=== PATIENT | female | born 1995 | race Caucasian/White ===

== ENCOUNTER 2017-10-03 12:42 | Emergency (ER) | payer OTHER, SELFPAY | END 2017-10-03 13:00 | disposition home or self-care (01) | LOC: BURERS 12:42 | DX: T78.40XA Allergy, unspecified, initial encounter (principal); F17.210 Nicotine dependence, cigarettes, uncomplicated; F90.9 Attention-deficit hyperactivity disorder, unspecified type | CPT/HCPCS: 99283 ==

== ENCOUNTER 2019-11-06 00:49 | Emergency (ER) | payer OTHER, SELFPAY ==
[2019-11-06 01:12] LABS: Bilirubin Negative (Negative); Blood, Urine Negative (Negative); Clarity Slightly Cloudy (Clear); Glucose, Urine (Dipstick) Negative (Negative); Ketone, Urine Negative (Negative); Leukocyte Negative (Negative); Nitrite Positive (Negative); Protein, Urine (Dipstick) Negative (Neg-Trace); pH, Urine 5.5 (5.0-9.0)
[2019-11-06] MEDS ORDERED: Dicyclomine 20 MG TAB ONE (01:14)
[2019-11-06 01:15] LABS: Pregnancy Test - Urine (BHCG) Negative (Negative); Pregu Control Background? CLEAR/WHITE (CLR/WHITE); Pregu Control Bar Appear? YES (CONTROL BAR); Specific Gravity 1.026 (1.002-1.036); Specific Gravity, Urine 1.026 (1.002-1.036)
[2019-11-06 01:21] LABS: Bacteria/HPF 3+ HPF (None Seen); RBC/HPF None Seen HPF (0-3); Squamous Epithelial 0-3 HPF (0-3); WBC/HPF 0-3 HPF (0-3)
[2019-11-07 20:59] LABS: Chlam.trachomatis by PCR,Urine Not Detected (NotDetected)
== END 2019-11-06 01:50 | disposition home or self-care (01) ==
LOC: BURERS 00:49
DX: N91.2 Amenorrhea, unspecified (principal); F41.9 Anxiety disorder, unspecified; F90.9 Attention-deficit hyperactivity disorder, unspecified type; F32.9 Major depressive disorder, single episode, unspecified; F17.210 Nicotine dependence, cigarettes, uncomplicated
CPT/HCPCS: 81003; 81015; 81025; 87077; 87086; 87186; 87491; 87591; 99284

== ENCOUNTER 2020-09-12 16:01 | Emergency (ER) | payer OTHER, SELFPAY ==
[2020-09-12 16:41] LABS: Bilirubin Negative (Negative); Blood, Urine Negative (Negative); Clarity Clear (Clear); Glucose, Urine (Dipstick) Negative (Negative); Ketone, Urine Negative (Negative); Leukocyte Negative (Negative); Nitrite Negative (Negative); Protein, Urine (Dipstick) Negative (Neg-Trace); Specific Gravity, Urine 1.025 (1.005-1.030); Urobilinogen 0.2 mg/dL (Less than 2); pH, Urine 7.5 (5.0-9.0)
[2020-09-12] MEDS ORDERED: Ondansetron ODT 4 MG TAB ONE (17:14)
[2020-09-12 17:30] LABS: Pregnancy Test - Urine (BHCG) POSITIVE (Negative)
[2020-09-12 17:31] LABS: Pregu Control Background? CLEAR/WHITE (CLR/WHITE); Pregu Control Bar Appear? YES (CONTROL BAR); Specific Gravity 1.025 (1.002-1.036)
== END 2020-09-12 17:45 | disposition short-term general hospital (02) ==
LOC: BURERS 16:01
DX: O21.9 Vomiting of pregnancy, unspecified (principal); O99.891 Other specified diseases and conditions complicating pregnancy; R10.32 Left lower quadrant pain; O99.331 Smoking (tobacco) complicating pregnancy, first trimester; F17.210 Nicotine dependence, cigarettes, uncomplicated; Z3A.12 12 weeks gestation of pregnancy
CPT/HCPCS: 81003; 81025; 99284; Q0162

== ENCOUNTER 2021-03-18 21:50 | Emergency (ER) | payer OTHER ==
[2021-03-18 22:23] LABS: Bilirubin Negative (Negative); Blood, Urine Negative (Negative); Clarity Clear (Clear); Glucose, Urine (Dipstick) Negative (Negative); Ketone, Urine Trace mg/dL (Negative); Leukocyte Trace (Negative); Nitrite Negative (Negative); Protein, Urine (Dipstick) Negative (Neg-Trace)
[2021-03-18 22:30] LABS: Specific Gravity, Urine 1.024 (1.002-1.036)
[2021-03-18 22:36] LABS: Amphetamine Detected (NotDetected); Barbiturates Screen Not Detected (NotDetected); Benzodiazepine Screen Not Detected (NotDetected); Cocaine Metabolite Screen Not Detected (NotDetected); Medtox Control Line Valid? VALID (VALID); Methadone Not Detected (NotDetected); Methamphetamine Detected (NotDetected); Opiate Screen Not Detected (NotDetected); Oxycodone Screen Not Detected (NotDetected); Phencyclidine (PCP) Not Detected (NotDetected); THC/Cannabinoid Screen Detected (NotDetected); Tricyclic Screen Not Detected (NotDetected)
[2021-03-18 22:49] LABS: RBC/HPF 0-3 HPF (0-3); Squamous Epithelial 21-50 HPF (0-3); WBC/HPF 0-3 HPF (0-3)
[2021-03-18 22:50] LABS: Bacteria/HPF 2+ HPF (None Seen)
== END 2021-03-18 22:20 | disposition short-term general hospital (02) ==
LOC: BURERS 21:50
DX: O47.00 False labor before 37 completed weeks of gestation, unspecified trimester (principal); O99.330 Smoking (tobacco) complicating pregnancy, unspecified trimester; F17.210 Nicotine dependence, cigarettes, uncomplicated; Z3A.00 Weeks of gestation of pregnancy not specified
CPT/HCPCS: 80306; 81003; 81015; 87491; 87591

== ENCOUNTER 2024-01-10 03:35 | Emergency (ER) | payer OTHER, SELFPAY ==
[2024-01-10 04:19] LABS: Bilirubin Negative (Negative); Blood, Urine Negative (Negative); Clarity Cloudy (Clear); Glucose, Urine (Dipstick) Negative (Negative); Ketone, Urine Negative (Negative); Leukocyte Small (Negative); Nitrite Positive (Negative); Protein, Urine (Dipstick) Negative (Neg-Trace)
[2024-01-10 04:33] LABS: CAUTI Indications for Culture Dysuria,urgency,freq; RBC/HPF 0-3 HPF (0-3); Specific Gravity, Urine 1.027 (1.002-1.036)
[2024-01-10 04:34] LABS: Bacteria/HPF 2+ HPF (None Seen); Squamous Epithelial None Seen HPF (0-3)
[2024-01-10 04:35] LABS: Urine Culture Reflex No No
[2024-01-10] MEDS ORDERED: Azithromycin 250 MG TAB ONE (05:20)
[2024-01-10] MEDS ORDERED: Sterile Water 10 ML ONE (05:20)
[2024-01-10] MEDS ORDERED: cefTRIAXone (ROCEPHIN) 500 MG VIAL ONE (05:20)
[2024-01-10 23:39] LABS: Chlam.trachomatis by PCR,Urine Not Detected (NotDetected); GC N.gonorrhoeae PCR,UrineVOID Not Detected (NotDetected)
== END 2024-01-10 05:54 | disposition home or self-care (01) ==
LOC: BURERS 03:35
DX: N39.0 Urinary tract infection, site not specified (principal); N76.0 Acute vaginitis; F17.210 Nicotine dependence, cigarettes, uncomplicated
CPT/HCPCS: 81001; 87077; 87086; 87491; 87591; J0696